=== PATIENT | male | born 1955 | race Caucasian/White ===

== ENCOUNTER 2022-06-09 09:44 | Emergency (ER) | payer MEDICARE, SELFPAY ==
[2022-06-09 09:56] VITALS: BP 174/79; PULSE 78; RESP 16; TEMP 36.1; O2SAT 100
--- NOTE | 2022-06-09 10:48 | ED.URI ---
HPI - URI/Sore Throat General Chief Complaint: Upper Respiratory Infection Stated Complaint: uri Time Seen by Provider: 06/09/22 10:48 Source: patient Mode of arrival: ambulatory History of Present Illness HPI Narrative: 67 y/o male presented for c/o left upper dental/facial pain and mild swelling for 2 weeks. States pain increased last night. Denies injury. States it feels like a sinus infection. Denies dental/gum swelling or drainage. States he has dental fractures and cavities and plans to have them pulled but due to medical problems that is on hold for now. Taking Tylenol for symptoms. Hx DM, sinus surgery and polyp removal Related Data Home Medications Medication Instructions Recorded Confirmed allopurinol 300 mg tablet 300 mg PO DAILY 06/09/22 06/09/22 aspirin 81 mg tablet 81 mg PO DAILY 06/09/22 06/09/22 ergocalciferol (vitamin D2) 1,250 06/09/22 mcg (50,000 unit) capsule Allergies Allergy/AdvReac Type Severity Reaction Status Date / Time pine nut Allergy Intermediate Jittery, Verified 06/09/22 10:30 FLUSHED Review of Systems Review of Systems: CONSTITUTIONAL: Denies body aches, fever, chills ENT: Denies rhinorrhea, congestion, sore throat, or otalgia. Reports right facial pain CARDIOVASCULAR: Denies chest pain, palpitations RESPIRATORY: Denies cough or dyspnea. SKIN: Denies rash, itching, or wounds. MUSCULOSKELETAL: Denies myalgia. NEUROLOGIC: Denies headache, numbness, tingling, or weakness. PMFSH Past Medical History Medical History Anxiety Diabetes type 2, controlled Hyperlipidemia Hypertension Hypothyroidism Medial meniscus tear r Medial meniscus tear Patient has surgery on September with Dr. Vaughan. Osteoarthritis Right knee pain Family History Family History Father Malignant neoplasm of prostate Mother Family history of coronary artery disease Other Diabetes mellitus Social History Social History Smoking status: Never smoker Second hand tobacco smoke exposure: No Alcohol intake: current Gender identity (if verbalized by the patient): Male Comments At time of signature, I have reviewed and agree with nursing past medical, surgical, social and family history unless otherwise noted. Please see nursing chart for further information. There is no relevant family history pertinent to the presenting complaint Exam Narrative: GENERAL: Appears in pain; no acute distress. HEAD: Normocephalic, atraumatic. EYES: EOMI. No redness or drainage. Conjunctivae normal. ENT: facial pain location above tooth #13; mild redness and swelling to site; pain worsened and persisted after palpation over the gumline. no apparent abscess; tooth missing at #13 area, and poor dentition throughout. Mucous membranes pink and moist. TMs normal bilaterally. Throat normal. Uvula midline. NECK: Normal AROM. No lymphadenopathy. CHEST: No respiratory distress. Clear to auscultation. HEART: Regular rate and rhythm. No murmur appreciated. SKIN: Warm, dry, no rash. Normal skin turgor. NEURO: No focal deficits. Alert and oriented x3. Gait steady. Course Course Emergency Course: Patient is aware of diagnosis, understands and agrees to treatment plan. Anticipatory guidance given. Patient agrees to follow-up as directed and is aware of reasons to seek care at the emergency department. Portions of this record may have been created with voice recognition software Level of Care: Express Care Visit Vital Signs Vital signs: Vital Signs Temperature 97.0 F L 06/09/22 09:56 Pulse Rate 78 06/09/22 09:56 Respiratory Rate 16 06/09/22 09:56 Blood Pressure 174/79 H 06/09/22 09:56 Pulse Oximetry 100 06/09/22 09:56 Oxygen Delivery Room Air 06/09/22 09:56 Temperature 97.0 F L 06/09/22 09:56 Pulse
== END 2022-06-09 11:06 | disposition home or self-care (01) ==
PROVIDERS: Emergency Provider Nurse Practitioner Family; PCP Physician Assistant
DX: R51.9 Headache, unspecified (principal); E11.9 Type 2 diabetes mellitus without complications; E78.5 Hyperlipidemia, unspecified; I10 Essential (primary) hypertension; E03.9 Hypothyroidism, unspecified; M19.90 Unspecified osteoarthritis, unspecified site; Z79.82 Long term (current) use of aspirin
CPT/HCPCS: 99213; G0463

== ENCOUNTER 2022-12-17 14:50 | Emergency (ER) | payer MEDICARE, SELFPAY ==
[2022-12-17 15:08] VITALS: BP 133/66; PULSE 84; RESP 20; TEMP 36.8; O2SAT 99
--- NOTE | 2022-12-17 15:28 | ED.UPPEXIN ---
HPI - Extremity Injury (Upper) General Chief Complaint: Extremity Problem,Nontraumatic Stated Complaint: swollen lt thumb Source: patient Mode of arrival: ambulatory Limitations: no limitations History of Present Illness HPI narrative: 67-year-old male presents to [facility] complains of pain, swelling, erythema and pocket of pus surrounding right thumb nail bed for the past 4 days. Patient reports he has been applying [id number] Neosporin with no relief. Patient denies injury to his finger. Patient denies fever, body aches, chills, nausea, vomiting or diarrhea MD complaint: injury to: right and finger (thumb) Other Extremity Injury: Right: fingers Other injuries: none Handedness: right Associated symptoms: denies other symptoms Treatments prior to arrival: bandage and other ([id number] Neosporin) Related Data Home Medications Medication Instructions Recorded Confirmed aspirin 81 mg tablet 81 mg PO DAILY 06/09/22 12/17/22 Allergies Allergy/AdvReac Type Severity Reaction Status Date / Time pine nut Allergy Intermediate Jittery, Verified 10/04/22 09:03 FLUSHED Review of Systems Constitutional: Constitutional: Denies chills, Denies fatigue, Denies fever(s) and Denies weakness ENT: Denies vertigo, Denies dizziness, Denies epistaxis and Denies nasal congestion Respiratory: Respiratory: Denies chest congestion, Denies cough and Denies dyspnea Gastrointestinal: Gastrointestinal: Denies diarrhea, Denies nausea and Denies vomiting Musculoskeletal: Musculoskeletal: Denies joint swelling and Denies muscle cramps Integumentary/Breasts: Comments: Area of redness, swelling and active drainage noted to area surrounding right thumb nail bed PMFSH Past Medical History Medical History Anxiety Diabetes type 2, controlled Hyperlipidemia Hypertension Hypothyroidism Medial meniscus tear r Medial meniscus tear Patient has surgery on September with Dr. Vaughan. Osteoarthritis Right knee pain Family History Family History Father Malignant neoplasm of prostate Mother Family history of coronary artery disease Other Diabetes mellitus Social History Social History Smoking status: Never smoker Second hand tobacco smoke exposure: No Alcohol intake: current Lack of Transportation: No Lack of Food: Never True Current Housing: I Have Housing Concerned About Future Housing: No Difficulty Paying Gas/Electric Bills: No Difficulty Paying for Meds: No Currently Unemployed: No Education: High School Diploma/GED Difficulty w/ Childcare or Family Care: No Gender identity (if verbalized by the patient): Male Comments At time of signature, I agree with nursing past medical, surgical, social and family history. There is no relevant family history pertinent to the presenting complaint. Exam Const: General: healthy appearing and no acute distress Nutritional Appearance: well nourished Orientation/consciousness: patient oriented x3 Limitations: no limitations Neck: Neck: normal visual inspection Resp: Effort & Inspection: normal respiratory effort and not labored Auscultation: clear to auscultation bilaterally, no crackles, no rales, no rhonchi and no wheezes Cardio: Rate: regular rate Rhythm: regular rhythm Heart sounds: no murmurs Skin: General skin exam: normal color Other: Area of redness, swelling and pocket of purulent drainage surrounding right thumb nailbed noted representing a paronychia Neuro: General: patient oriented x3 Speech: normal speech Extrem: Other: See skin assessment --redness and swelling noted surrounding right thumb nail bed Psych: Affect: normal affect Attitude: cooperative Course Course Level of Care: Express Care Visit Vital Signs Vital signs: Vital Signs Temp
== END 2022-12-17 15:50 | disposition home or self-care (01) ==
PROVIDERS: Emergency Provider Nurse Practitioner Family
DX: L03.011 Cellulitis of right finger (principal); E11.9 Type 2 diabetes mellitus without complications; E78.5 Hyperlipidemia, unspecified; I10 Essential (primary) hypertension; E03.9 Hypothyroidism, unspecified; M19.90 Unspecified osteoarthritis, unspecified site; Z79.82 Long term (current) use of aspirin
CPT/HCPCS: 10060; 99213; G0463

== ENCOUNTER 2023-04-05 08:41 | Outpatient (CLI) | payer MEDICARE, SELFPAY ==
[2023-04-05 09:11] LABS: Alanine Aminotransferase 21 U/L (6-50); Albumin Level 4.5 g/dL (3.5-5.1); Alkaline Phosphatase 41 U/L (38-126); Anion Gap 9 mmol/L (8-16); Aspartate Amino Transferase 25 U/L (17-59); Bilirubin,Total 0.4 mg/dL (0.2-1.3); Blood Urea Nitrogen 27 mg/dL (9-20); Calcium 9.2 mg/dL (8.4-10.2); Carbon Dioxide 27 mmol/L (22-30); Chloride 104 mmol/L (98-107); Estimated Glomerular Filt Rate 38; Glucose 86 mg/dL (65-110); Potassium 4.1 mmol/L (3.4-5.0); Sodium 140 mmol/L (137-145)
[2023-04-05 09:36] LABS: Hemoglobin A1C 6.6 % (<5.7)
== END 2023-04-05 08:42 | disposition home or self-care (01) ==
PROVIDERS: PCP Physician Assistant; Visit Provider Physician Assistant
DX: E11.9 Type 2 diabetes mellitus without complications (principal)
CPT/HCPCS: 36415; 80053; 83036

== ENCOUNTER 2024-05-15 10:49 | Outpatient (CLI) | payer MEDICARE, SELFPAY ==
--- NOTE | ~2024-05-15 | US_ITS ---
EXAMINATION: US carotid duplex BI DATE: 05/15/2024 11:52 INDICATION: Carotid artery stenosis TECHNIQUE: Grayscale, color Doppler, and pulsed Doppler images of the cervical carotid arteries were obtained. The degree of vessel stenosis is placed in one of the following categories: normal, <50%, 5 0-69%, >=70% but less than near-occlusion, near-occlusion, or total occlusion. Note that percent sten osis relative to normal distal artery lumen diameter is indirectly measured from velocity measurement s as described by Abdi, et al. Radiology 2003; 229:340-346. COMPARISON: None. FINDINGS: RIGHT: The right common carotid artery (CCA) peak systolic velocity (PSV) is 82 cm/s. The right internal car otid artery (ICA) PSV is 55 cm/s. The right ICA end-diastolic velocity (EDV) is 23 cm/s. The right IC A/CCA PSV ratio is 0.7. Grayscale and color Doppler images yield an estimate of <50% diameter reducti on from plaque in the ICA. The external carotid artery (ECA) PSV is 121 cm/s. There is antegrade flow in the right vertebral artery. LEFT: The left CCA PSV is 81 cm/s. The left ICA PSV is 92 cm/s. The left ICA EDV is 38 cm/s. The left ICA/C CA PSV ratio is 1.1. Grayscale and color Doppler images yield an estimate of <50% diameter reduction from plaque in the ICA. The ECA PSV is 238 cm/s. There is antegrade flow in the left vertebral artery . IMPRESSION: 1. <50% stenosis in the right internal carotid artery. 2. <50% stenosis in the left internal carotid artery. Reviewed, dictated and finalized at location B.
== END 2024-05-15 10:50 | disposition home or self-care (01) ==
PROVIDERS: PCP Family Medicine; Visit Provider Family Medicine
DX: I65.23 Occlusion and stenosis of bilateral carotid arteries (principal)
CPT/HCPCS: 93880

== ENCOUNTER 2024-05-21 09:29 | Outpatient (CLI) | payer MEDICARE, SELFPAY ==
--- NOTE | 2024-05-21 09:51 | ECG_ITS ---
Test Date: 2024-05-21 08:55:35 Measurements Intervals [place] Rate: 74 P: 72 AR: 165 QRS: 54 QRSD: 96 T: 37 QT: 374 QTc: 416 Interpretive Statements SINUS RHYTHM CONSIDER INFERIOR INFARCT, AGE INDETERMINATE ABNORMAL ECG No previous ECG available for comparison Electronically Signed On 05-21-2024 10:40:01 CDT by Flash Mckinney D.O.
== END 2024-05-21 09:30 | disposition home or self-care (01) ==
PROVIDERS: PCP Family Medicine; Visit Provider Family Medicine
DX: I10 Essential (primary) hypertension (principal); R94.31 Abnormal electrocardiogram [ECG] [EKG]
CPT/HCPCS: 93005

== ENCOUNTER 2024-07-09 07:44 | Outpatient (CLI) | payer MEDICARE, SELFPAY ==
--- NOTE | ~2024-07-09 | PE_ITS ---
EXAMINATION: PET_PETPSMAST_PT DATE: 07/09/2024 09:59 INDICATION: Malignant neoplasm of prostate. TECHNIQUE: 4.349 mCi of Ga-68 gozetotide was administered intravenously. Low dose computed tomography (CT) images were acquired from the base of the brain to the proximal thighs for attenuation correcti on and anatomic localization. Automated exposure control was employed. Dose-length product (DLP) was 1078 mGy-cm. Positron emission tomography (PET) images were acquired in the same distribution. COMPARISON: None FINDINGS: Head/neck: There is a 2.1 x 1.6 cm mass in the superficial right parotid gland without increased acti vity. There are no pathologically enlarged lymph nodes. Chest: The lungs demonstrate mild atelectasis. Calcified lung nodules and calcified left hilar lymph nodes are consistent with old granulomatous disease. No pleural effusion. The heart is normal. There are coronary artery calcifications. No pericardial effusion. Abdomen/pelvis/proximal thighs: The liver, gallbladder, spleen, pancreas, adrenal glands, and kidneys are normal. The prostate is moderately enlarged. There are brachytherapy seeds in the prostate. Ther e is activity in the prostate with maximum SUV of 4.5. There are no dilated loops of bowel. The appen jennifer is normal. There are no pathologically enlarged lymph nodes. There is no free intraperitoneal flu id. There is a left inguinal hernia containing fat. There is no osseous malignancy. IMPRESSION: 1. Moderately enlarged prostate with maximum SUV of 4.5, consistent with primary malignancy. No evide nce of metastatic disease. 2. 2.1 cm right parotid mass. The differential diagnosis includes benign mixed tumor, Warthin tumor, and less likely primary malignancy. Ultrasound-guided fine needle aspiration is recommended. Reviewed, dictated and finalized at location A. [employer] IMPRESSION: 1. Moderately enlarged prostate with maximum SUV of 4.5, consistent with primar y malignancy. No evidence of metastatic disease. 2. 2.1 cm right parotid mass. The differential diagnosis includes benign mixed tumor, Warthin tumor, and less likely primary malignancy. Ultrasound-guided fin e needle aspiration is recommended.
== END 2024-07-09 07:45 | disposition home or self-care (01) ==
PROVIDERS: PCP Family Medicine; Visit Provider Urology
DX: C61 Malignant neoplasm of prostate (principal)
CPT/HCPCS: 78815; A9596